=== PATIENT | male | born 1950 | race Caucasian/White ===

== ENCOUNTER 2018-01-13 08:02 | Day surgery (SDC) | payer MEDICARE, OTHER ==
[~2018-01-13] VITALS: Ht 182.9 cm; Wt 79.6 kg
[~2018-01-13 08:02] MED LIST: BACITRACIN 50,000 UNIT ONE; BUPIVACAINE 0.25% ONE; CETI10TA18 PO; EPINEPHRINE 1 MG/ML, 1ML ONE; ESOM20CA PO; GLUC1CAP37 PO; OMEG-69 PO; SAW450CA7 PO; TACR30OI4 TP; [UNRECOGNIZED DRUG - CODE] PO
[2018-01-13] MEDS ORDERED: LACTATED RINGERS 1,000 ML IV SCH (08:26)
[2018-01-13 08:32] VITALS: BP_SYST 131; BP_SYST 162; BP_DIAS 106; BP_DIAS 88
[2018-01-13] MEDS ORDERED: FENTANYL PF 250 MCG/5ML ONE (09:48)
[2018-01-13] MEDS ORDERED: EPINEPHRINE 1 MG/ML, 1ML ONE (09:50)
[2018-01-13] MEDS ORDERED: GLYCOPYRROLATE 0.2MG/1ML, 5ML ONE (09:50)
[2018-01-13] MEDS ORDERED: DEXAMETHASONE 4 MG/ML, 1ML ONE (09:50)
[2018-01-13] MEDS ORDERED: KETOROLAC 30 MG/1 ML ONE (09:50)
[2018-01-13] MEDS ORDERED: PROPOFOL 10 MG/ML, 20ML ONE (09:50)
[2018-01-13] MEDS ORDERED: NEOSTIGMINE 1 MG/ML, 10ML ONE (09:50)
[2018-01-13] MEDS ORDERED: SUCCINYLCHOLINE 20 MG/ML, 10ML ONE (09:50)
[2018-01-13] MEDS ORDERED: ONDANSETRON 2MG/ML, 2ML ONE (09:50)
[2018-01-13] MEDS ORDERED: ROCURONIUM 10 MG/ML,10ML ONE (09:50)
[2018-01-13] MEDS ORDERED: CEFAZOLIN 1,000 MG ONE (09:50)
[2018-01-13] MEDS ORDERED: BACITRACIN 50,000 UNIT IMPLANT ONE (10:13)
[2018-01-13] MEDS ORDERED: BUPIVACAINE/PF 0.25% INFIL ONE (10:15)
[2018-01-13] MEDS ORDERED: EPINEPHRINE 1 MG/ML, 1ML INFIL ONE (10:16)
[2018-01-13] MEDS ORDERED: HYDROmorphone 1 MG/ML, 1ML IV PRN (10:30)
[2018-01-13] MEDS ORDERED: OXYcodone 5 MG/5 ML ORAL.SOL UDC PO PRN (10:30)
[2018-01-13] MEDS ORDERED: FENTANYL PF 100 MCG/2ML IV PRN (10:30)
[2018-01-13] MEDS ORDERED: HALOPERIDOL 5 MG/ML IV PRN (10:30)
[2018-01-13] MEDS ORDERED: ACETAMINOPHEN 325 MG TABLET PO PRN (10:30)
[2018-01-13] MEDS ORDERED: hydrALAzine 20 MG/ML, 1ML IV PRN (10:30)
[2018-01-13] MEDS ORDERED: LABETALOL 5MG/ML, 20ML IV PRN (10:30)
[2018-01-13] MEDS ORDERED: OXYcodone 5 MG/5 ML ORAL.SOL UDC ONE (11:14)
[2018-01-13] MEDS ORDERED: ACETAMINOPHEN 650 MG/20.3 ML UDC ONE (11:14)
== END 2018-01-13 13:45 ==
LOC: OUT 08:02
PROVIDERS: ATTEND Surgery
DX: K40.90 Unilateral inguinal hernia, without obstruction or gangrene, not specified as recurrent (principal); K21.9 Gastro-esophageal reflux disease without esophagitis; Z98.890 Other specified postprocedural states; Z72.89 Other problems related to lifestyle; Z87.891 Personal history of nicotine dependence
CPT/HCPCS: 49650; 93005; C1727; C1781; J0171; J0330; J0690; J1100; J1885; J2405; J2704; J2710; J3010; J3490; J7120

== ENCOUNTER 2018-07-16 11:00 | Day surgery (SDC) | payer MEDICARE, OTHER ==
[~2018-07-16] VITALS: Ht 182.9 cm; Wt 83.1 kg
[~2018-07-16 11:00] MED LIST changes: -BACITRACIN 50,000 UNIT ONE; -BUPIVACAINE 0.25% ONE; -EPINEPHRINE 1 MG/ML, 1ML ONE
[2018-07-16 11:44] VITALS: BP 161/95
[2018-07-16] MEDS ORDERED: LACTATED RINGERS 1,000 ML IV SCH (11:57)
[2018-07-16] MEDS ORDERED: BUPIVACAINE/PF 0.25% ONE (12:40)
[2018-07-16] MEDS ORDERED: EPINEPHRINE 1 MG/ML, 1ML ONE (12:40)
[2018-07-16] MEDS ORDERED: FENTANYL PF 250 MCG/5ML ONE (12:41)
[2018-07-16] MEDS ORDERED: MIDAZOLAM 1 MG/ML, 2ML ONE (12:41)
[2018-07-16] MEDS ORDERED: ROCURONIUM 10 MG/ML,10ML ONE (13:57)
[2018-07-16] MEDS ORDERED: DEXAMETHASONE 4 MG/ML, 1ML ONE ×2 (14:06)
[2018-07-16] MEDS ORDERED: CEFAZOLIN 1,000 MG ONE ×2 (14:07)
[2018-07-16] MEDS ORDERED: PROPOFOL 10 MG/ML, 20ML ONE (15:04)
[2018-07-16] MEDS ORDERED: KETOROLAC 30 MG/1 ML ONE (15:04)
[2018-07-16] MEDS ORDERED: ONDANSETRON 2MG/ML, 2ML ONE (15:17)
[2018-07-16] MEDS ORDERED: LABETALOL 5MG/ML, 20ML IV PRN (16:30)
[2018-07-16] MEDS ORDERED: PROMETHAZINE 25 MG/ML, 1ML IV PRN (16:30)
[2018-07-16] MEDS ORDERED: HYDROmorphone 2 MG/ML, 1ML IVPush PRN (16:30)
[2018-07-16] MEDS ORDERED: MEPERIDINE/PF 25MG/0.5ML IVPush PRN (16:30)
[2018-07-16] MEDS ORDERED: FENTANYL PF 100 MCG/2ML IV PRN (16:30)
[2018-07-16] MEDS ORDERED: ONDANSETRON 2MG/ML, 2ML IV PRN (16:30)
[2018-07-16] MEDS ORDERED: ACETAMINOPHEN 325 MG TABLET PO PRN (16:30)
[2018-07-16] MEDS ORDERED: hydrALAzine 20 MG/ML, 1ML IV PRN (16:30)
== END 2018-07-16 17:45 | disposition home or self-care (01) ==
LOC: OUT 11:00
PROVIDERS: ATTEND Urology
DX: N50.812 Left testicular pain (principal); Z72.89 Other problems related to lifestyle; Z87.891 Personal history of nicotine dependence; Z79.899 Other long term (current) drug therapy
CPT/HCPCS: 55899; 93005; J0171; J0690; J1100; J1885; J2250; J2405; J2704; J3010; J3490